=== PATIENT | female | born 1970 | race Two or more races ===

== ENCOUNTER 2023-03-27 13:04 | Emergency (ER) | payer MEDICAID, OTHER ==
[~2023-03-27] VITALS: Ht 157.5 cm; Wt 54.4 kg
[2023-03-27 13:59] VITALS: BP 109/40
[2023-03-27] MEDS ORDERED: IBUP-1454 PO (15:00)
[2023-03-27] MEDS ORDERED: PROM1SOL4 PO (15:00)
[2023-03-27] MEDS ORDERED: AMOX875T3 PO (15:00)
[2023-03-27 15:04] VITALS: PULSE 100; RESP 17; TEMP 98; O2SAT 96
== END 2023-03-27 15:06 | disposition home or self-care (01) ==
LOC: ER 13:04
DX: J03.90 Acute tonsillitis, unspecified (principal); J20.9 Acute bronchitis, unspecified; H66.93 Otitis media, unspecified, bilateral; Z79.899 Other long term (current) drug therapy
CPT/HCPCS: 71046